=== PATIENT | female | born 1960 | race African-American/Black ===

== ENCOUNTER 2016-06-03 22:42 | Emergency (ER) | payer OTHER ==
[~2016-06-03] VITALS: Ht 165.1 cm; Wt 78.7 kg
[~2016-06-03 22:42] MED LIST: ADULT LOW DOSE81 M1 PO; ADVAIR 250/501 DISK IH; ATIVAN0.5 MG PO; AZITHROMYCIN250 MG PO; AZITHROMYCIN500 MG PO; BENTYL10 MG PO; CARTIA XT180 MG PO; CHILD ASPIRIN81 M1 PO; CLINDAMYCIN HC300 MG PO; COLACE100 MG PO; DALIRESP500 MCG PO; DOXYCYCLINE HY100 MG PO; DUONEB 2.5-0.5 M3 ML AEROSOL; FLUTICASONE PRO16 GM BOTH NARES; HYDROCHLOROTH12.5 M3 PO; K-DUR20 MEQ PO; LISINOPRIL10 MG PO; LISINOPRIL40 MG PO; LOSARTAN POTAS100 MG PO; MEDROL DOSEPAK4 MG PO; METHYLPREDNISOLO4 M1 PO; MICRO-K10 ME2 PO; POTASSIUM CHLO10 ME3 PO; PREDNISONE10 MG PO; PREDNISONE20 MG PO; PREDNISONE50 MG PO; PRILOSEC40 MG PO; PROAIR HFA8.5 GM IH; PROAIR RESPICL90 MCG IH; PROMETHAZINE HC25 M1 PO; PROVENTIL HFA6.7 GM IH; PULMICORT FLEX90 MCG IH; ROBITUSSIN AC,T10 ML PO; ROXICET 5-3251 EACH PO; SINGULAIR10 MG PO; SPIRIVA RESPIMAT4 GM IH; TESSALON200 MG PO; TORADOL10 MG PO; ULTRAM50 MG PO; VIRTUSSIN AC L473 ML PO; ZESTRIL30 MG PO; ZITHROMAX Z-PA250 MG PO; ZYRTEC10 M2 PO; ZYRTEC10 M3 PO
[2016-06-04] MEDS ORDERED: MORGIDOX100 MG PO (00:10)
[2016-06-04 00:22] VITALS: BP 161/94
== END 2016-06-04 00:23 | disposition home or self-care (01) ==
LOC: EXP 22:42 → EME 22:42 → EXP 06-04 00:23
DX: J20.9 Acute bronchitis, unspecified (principal); T36.8X5A Adverse effect of other systemic antibiotics, initial encounter; L50.9 Urticaria, unspecified; L29.9 Pruritus, unspecified
CPT/HCPCS: 99281; 99283